=== PATIENT | female | born 1995 ===

== ENCOUNTER 2023-07-19 15:24 | Outpatient (OUT) | payer OTHER, SELFPAY ==
--- NOTE | 2023-07-19 | XR_ITS ---
The [address] [address] Patient Name: TRAVIS CARROLL MRN: [id number] date: 1995 Sex: F Assigned Patient Location: Current Patient Location: Accession/Order Number: [id number] Exam Date: 07/19/2023 15:45 Report Date: 07/19/2023 17:18 At the request of: ANA RIBERA Procedure: XR ankle RT min 3V PROCEDURE: XR ankle RT min 3V, XR foot RT min 3V COMPARISON: None. HISTORY: RIGHT ANKLE PAIN FINDINGS: BONES:No acute fracture or spondylolisthesis. Moderate enthesopathic spurring of the calcaneus. Plantar rotation of the hindfoot in relation to the midfoot. Partial pes planus. Mild degenerative changes of the midfoot SOFT TISSUES:Negative. No visible soft tissue swelling. EFFUSION:None visible. OTHER: Negative. 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
--- NOTE | 2023-07-19 15:55 | XR_ITS ---
The [address] [address] Patient Name: TRAVIS CARROLL MRN: [id number] date: 1995 Sex: F Assigned Patient Location: Current Patient Location: Accession/Order Number: [id number] Exam Date: 07/19/2023 15:45 Report Date: 07/19/2023 17:18 At the request of: ANA RIBERA Procedure: XR foot RT min 3V PROCEDURE: XR ankle RT min 3V, XR foot RT min 3V COMPARISON: None. HISTORY: RIGHT ANKLE PAIN FINDINGS: BONES:No acute fracture or spondylolisthesis. Moderate enthesopathic spurring of the calcaneus. Plantar rotation of the hindfoot in relation to the midfoot. Partial pes planus. Mild degenerative changes of the midfoot SOFT TISSUES:Negative. No visible soft tissue swelling. EFFUSION:None visible. OTHER: Negative. XR/XR foot RT min 3V IMPRESSION: Mild to moderate degenerative changes of the foot and ankle Electronically authenticated by: JACKELINE DAMICO Date: 07/19/2023 17:18
== END 2023-07-19 15:25 | disposition home or self-care (01) ==
PROVIDERS: Visit Provider Podiatrist Foot & Ankle Surgery
DX: M25.571 Pain in right ankle and joints of right foot (principal)
CPT/HCPCS: 73610; 73630